=== PATIENT | male | born 1965 | race Caucasian/White ===

== ENCOUNTER 2024-01-02 22:02 | Inpatient (IN) | payer MEDICAID, SELFPAY ==
[2024-01-02 17:32] VITALS: BP 144/90; BMI 19.7
[2024-01-02 17:59] LABS: % Basophils 0.8 % (0-2); % Eosinophils 1.3 % (0-6); % Immature Granulocytes 0.2 % (0-0.5); % Lymphocytes 22.6 % (20.5-51.1); % Neutrophils 65.1 % (42.2-75.2); Absolute Basophils 0.1 10^3/uL (0-0.2); Absolute Eosinophils 0.1 10^3/uL (0-0.7); Absolute Lymphocytes 1.9 10^3/uL (1.2-3.4); Absolute Monocytes 0.9 10^3/uL (0.1-0.6); Absolute Neutrophils 5.5 10^3/uL (1.4-6.5); Hematocrit 35.9 % (39.0-52.0); Hemoglobin 12.8 g/dL (13.0-18.0); Mean Corp Hgb Conc. 35.7 g/dL (33.0-37.0); Mean Corpuscular Hgb 35.5 pg (27.0-31.0); Mean Corpuscular Volume 99.4 fL (80.0-94.0); Mean Platelet Volume 9.6 fL (7.4-10.4); Nucleated Red Blood Cells % 0 % (-); Platelet Count 231 10^3/uL (130-400); Red Blood Cell Count 3.61 10^6/uL (4.70-6.10); Red Cell Dist. Width 13.5 % (11.5-14.5); White Blood Cell Count 8.5 10^3/uL (4.8-10.8)
[2024-01-02 18:11] LABS: ALT (SGPT) 27 U/L (0-50); AST (SGOT) 59 U/L (17-59); Albumin 4.9 g/dl (3.5-5.0); Alkaline Phosphatase 104 U/L (38-126); Blood Urea Nitrogen 40 mg/dl (9-20); Calcium 9.1 mg/dl (8.4-10.2); Carbon Dioxide 26 mmol/L (22-30); Chloride 100 mmol/L (98-107); Estimated Creatinine Clearance 34 ml/min; Glucose 97 mg/dl (70-99); Lipase 243 U/L (23-300); Potassium 3.9 mmol/L (3.5-5.1); Sodium 138 mmol/L (135-145); Total Bilirubin 0.6 mg/dl (0.2-1.3); Total Protein 8.2 g/dl (6.3-8.2); eGFR 31.71
--- NOTE | 2024-01-02 20:40 | ED.GENMED ---
History of Present Illness
General
Chief Complaint: Male Genito-Urinary Symptoms
Source: patient
Exam Limitations: none
Time Seen by Provider: 01/02/24 20:27
Nursing documentation reviewed up to this point in time: agreed with
Travel History
Have you had any contact with someone who has COVID-19?: No
Do you have any symptoms of coronavirus? Fever > 100 degrees, chills, cough, shortness of breath, sore throat, loss of taste or smell, muscle aches, or headache?: No
History of Present Illness
History of Present Illness:
58-year-old male difficulty urinating with suprapubic pain only dribbling since yesterday states he had a similar episode as a teenager when he had a kidney stone takes no meds, has a family history of hypertension and diabetes,
He does tell me he had right greater than left leg swelling he had some Lasix that he was prescribed previously did take 2 doses with some improvement
Past History
Past History
ED Past Medical History: CVA
Social History
Tobacco: Non-smoker
Alcohol: Occasional
Drug: Marijuana (occasional)
Employment: Employed
Family History
Family History: Diabetes and Hypertension
Review of Systems
Review of Systems
All Other Systems: Not applicable
Constitutional: Denies fever or fatigue
ABD/GI: Reports abdominal pain
: Reports difficulty voiding and urgency
Musculoskeletal: Reports edema
Endocrine: Reports no symptoms
Hematologic/Lymphatic: Reports no symptoms
Phy Exam
Physical Exam
Physical Exam:
Physical Exam
General: 58 male looks uncomfortable
Neck: No jaundice
Heart: s1/s2 regular rate and rhythm, no murmur. equal radial pulses.
Lungs: no acute respiratory distress.
Abdomen: Palpable bladder near the umbilicus with tenderness
Neuro: alert and oriented. no focal neurological deficits
Skin: no rash
Psychiatric: well kept. interactive and cooperative
Extremities: Right lower extremity swelling
Course
Orders/Labs/Results
Orders:
Orders
01/02/24 17:47
Complete Blood Count/With Diff Urgent
Comprehensive Metabolic Panel Urgent
Lipase Urgent
01/02/24 18:01
Urinalysis Reflex To Culture Urgent
01/02/24 20:27
Bladder Scan- Treatment ONCE
01/02/24 20:36
CT Abd/pel Without Iv Or Oral Urgent
Comment:
Reason For Exam: arf obsturction kiendy stone
Mccormick Placement- Treatment ONCE
Reason for insertion: Outlet obstruction
01/02/24 20:45
0.9% Sodium Chloride 1000 ml [Nss] 1,000 ml IV BOLUS
Abnormal Lab Results
01/02/24
17:47
RBC 3.61 L 10^6/uL
(4.70-6.10)
Hgb 12.8 L g/dL
(13.0-18.0)
Hct 35.9 L %
(39.0-52.0)
MCV 99.4 H fL
(80.0-94.0)
MCH 35.5 H pg
(27.0-31.0)
Absolute Monos (auto) 0.9 H 10^3/uL
(0.1-0.6)
Monocytes % 10.0 H %
(1.7-9.3)
BUN 40 H mg/dl
(9-20)
Creatinine 2.3 H mg/dL
(0.7-1.3)
01/02/24 17:47
01/02/24 17:47
Vital Signs
Initial and Last Documented VS:
Initial Vital Signs
Temp Pulse Resp BP Pulse Ox
98.4 F 95 16 144/90 100
01/02/24 17:32 01/02/24 17:32 01/02/24 17:32 01/02/24 17:32 01/02/24 17:32
Last Documented Vital Signs
Temp Pulse Resp BP Pulse Ox
98.4 F 95 16 144/90 100
01/02/24 17:32 01/02/24 17:32 01/02/24 17:32 01/02/24 17:32 01/02/24 17:32
MDM/Problems Addressed
Differential Diagnosis Includes:
Urinary retention, intra-abdominal process, stone
*Radiology
Radiology exam reviewed: preliminary read by ED provider
*Pulse Oximetry
Patient hypoxic: no
*Critical Care Note
Total Time (30-74mins, 75-104mins- exclusive of procedures): Not Applicable
Data Reviewed
Review of Other/Old Records Reveals: Labs
Source: patient
Update Note
Update Note:
Patient with likely urinary retention has acute renal insufficiency, bladder scan and then Mccormick will check CT to rule out any hydro will require admission
+Bladder scan
Mccormick by RN 1200 cc of yellow urine placed patient feeling better
Will also check Doppler of the leg will require admission
ED Attending Note
-
Portions of this chart may have been created with voice recognition software.� Occasional wrong word or��sound alike� substitutions may have occurred due to the inherent limitations of voice recognition software.
Discharge Plan
Departure
Patient Disposition: Admit
Date of Disposition: 01/02/24
Time of Disposition: 21:09
Admit to: Med/Surg
Presentation/result/management discussed w/ accepting MD/DO: Hospitalist
Patient with high blood pressure during this ER visit?: Yes
Condition: Fair
Discharge Problem:
LITTLE (acute kidney injury), Obstruction, uropathy
Prescriptions:
No Action
nicotine 14 mg/24 hr Patch 24 Hour
14 mg transdermal DAILY Qty: 30 0RF
lidocaine 4 % Adhesive Patch,Medicated
1 patch topical DAILY Qty: 30 0RF
thiamine HCl (vitamin B1) 100 mg Tablet
100 mg PO BID Qty: 60 0RF
benzonatate 100 mg Capsule
200 mg PO TIDPRN PRN (Reason: cough) Qty: 20 0RF
folic acid 1 mg Tablet
1 mg PO DAILY Qty: 30 0RF
guaifenesin 600 mg Tablet Extended Release 12hr
1,200 mg PO Q12 Qty: 20 0RF
acetaminophen [Tylenol] 325 mg tablet
650 mg PO QID PRN (Reason: pain) Qty: 30 0RF
Referrals:
Marcus Cavazos DO [Family Provider] -
Interventions
Interventions:
*Risk Screen - Suicide Last Done: 01/02/24 17:32
*Neglect/Abuse Screening Last Done: 01/02/24 17:32
ED- Fall Risk Assessment Last Done: 01/02/24 17:32
ED-Male Genitourinary Assessment Last Done: 01/02/24 20:49
Discharge Date and Time
Print Language: BENINESE
[2024-01-02 21:08] VITALS: BP 160/99
[2024-01-02] MEDS: NSS 1000 IV ×2 (21:11→22:47)
--- NOTE | 2024-01-02 21:23 | HPS.HSE ---
Family Physician
-
Family Physician: Marcus Cavazos
Chief Complaint
-
Difficulty voiding
History of Present Illness
58-year-old male complaining of suprapubic pain with urinary dribbling since yesterday. Along with suprapubic pain. He denies any flank pain, fever, chills, chest pain, palpitations, shortness of breath, cough, abdominal pain, nausea, vomiting,
diarrhea. He reports past medical history of kidney stones many years ago but states he was able to pass it.
He has past medical history of alcohol abuse/withdrawal, HTN, renal calculi, nicotine abuse, marijuana use, CVA, influenza A August 2023, bacterial streptococcal pneumonia August 2023, cachexia, left-sided rib fractures
Medical History
Past Medical History
Past Medical History: Reports Other
Additional Past Medical History:
alcohol abuse/withdrawal
HTN
renal calculi
nicotine abuse
marijuana use
CVA
influenza A August 2023, bacterial streptococcal pneumonia August 2023
cachexia
left-sided rib fractures
Past Surgical History: Reports Other (Right descended testicular repair age 4)
Social History
Tobacco: Smoker (1/2 pack/day x 45 years)
Alcohol: Daily (2-3 [place] lights a day +1 shot of bourbon)
Drug: Marijuana (Smokes 2 hits off of 1 joint daily)
Personal: Single
Living: With Family (Uncle lives with him)
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
Family History
Family History: Other (Mother age 83 CHF, DM 2 father age 48 alcohol abuse liver disease, DM2, brother living history diverticulitis, maternal aunt history of kidney stones)
Allergies / Home Medications
Allergies reflects when Allergies were last updated in [employer].
Home Medications with original date entered in [employer]
Allergy/Medication List:
Allergies
Allergy/AdvReac Type Severity Reaction Status Date / Time
No Known Allergies Allergy Verified 01/02/24 17:31
Home Medications
benzonatate 100 mg capsule 200 mg (2 x 100 mg) PO TIDPRN PRN cough #20 caps 09/03/23
folic acid 1 mg tablet 1 mg PO DAILY #30 tabs 09/03/23
guaifenesin 600 mg tablet, extended release 12 hr 1,200 mg (2 x 600 mg) PO Q12 #20 tabs 09/03/23
lidocaine 4 % topical patch 1 patch topical DAILY #30 ea 09/03/23
nicotine 14 mg/24 hr daily transdermal patch 14 mg transdermal DAILY #30 ea 09/03/23
thiamine HCl (vitamin B1) 100 mg tablet 100 mg PO BID #60 tabs 09/03/23
acetaminophen 325 mg tablet (Tylenol) 650 mg (2 x 325 mg) PO QID PRN pain #30 tabs 09/04/23
Review of Systems
-
History Source: Patient
A 12 point ROS was completed and negative except as noted: Yes
Constitutional: Denies Fever or Chills
EENT: Denies Sore Throat or Runny Nose
Respiratory: Denies Cough or Trouble Breathing
Cardiac: Denies Chest Pain, Diaphoresis, Palpitations or Syncope
Abdomen/GI: Denies Abdominal Pain, Nausea, Vomiting, Diarrhea, Constipated, Bloody Stools or Black Stools
: Reports Incontinence, Difficulty Voiding and Urgency; Denies Dysuria, Frequency or Flank Pain
Musculoskeletal: Denies Joint Pain or Edema
Skin: Denies Itching or Rash
Neurological: Denies Dizzy or Headache
Endocrine: Reports No Symptoms
Hematologic/Lymphatic: Reports No Symptoms
Psych: Reports Calm
Physical Exam
Vital Signs
Vital Signs
Temp Pulse Resp BP Pulse Ox
98.4 F 95 16 160/99 96
01/02/24 17:32 01/02/24 17:32 01/02/24 17:32 01/02/24 21:08 01/02/24 21:15
Physical Exam
General: Comfortable and Conversant; No Pain or Fever
HEENT: NormoCephalic, Anicteric, Moist mucous membranes, PERRLA, [place] Conjunctivae, No Ptosis and Neck Nontender
Respiratory: Clear; No Wheezes, Rales or Rhonchi
Cardiac: S1/S2 and Regular Rhythm; No Murmur, Rub, Gallop or Peripheral Edema
Breast: Deferred by me
GI: Soft, Non Distended, Normal Bowel Sounds, Tender (Suprapubic tenderness) and No Hepatosplenomegaly
Rectal: Deferred by Provider
Genito-urinary: Mccormick (Draining yellow in color)
Musculoskeletal: No Clubbing, No Cyanosis and No Edema
Skin: Warm and Dry; No Rash
Neuro: AO x 3, No Motor Deficits, Nonfocal/grossly intact, Cranial Nerves Intact and No Sensory Deficits; No Slurred Speech, Facial Droop or Tremors
Psych: Calm
Laboratory Results
-
01/02/24 17:47
01/02/24 17:47
Laboratory Results
Total Bilirubin 0.6 mg/dl (0.2-1.3) 01/02/24 17:47
AST 59 U/L (17-59) 01/02/24 17:47
ALT 27 U/L (0-50) 01/02/24 17:47
Alkaline Phosphatase 104 U/L (38-126) 01/02/24 17:47
Lipase 243 U/L (23-300) 01/02/24 17:47
Impression/Plan
-
Impression/plan:
Admit to Tele
#Acute urinary retention
1200 mL cc retained via Mccormick placement
-CT abdomen pelvis without contrast
-Follow UA LATENT FINGERPRINT EXAMINER
-Consult urology
#LITTLE secondary to urinary retention vs obstruction
#Hx renal calculi
Creat 2.6 baseline 0.7 09/04/2023
-IV NSS
-Follow BMP
-If kidney function not improving will consult nephrology
#HTN�benign
No recorded meds
#Alcohol abuse/withdrawal history
Drinks 2-3 beers a day +1 shot bourbon
Last drink 2 shots 9 to 10 AM today 01/02/2024
-MSAS screen with protocol, IV thiamine, IV folate
#History of mid thoracic spine compression fracture
#Nicotine abuse-1/2 pack x 45 years
#Marijuana use-partial 1 joint daily
-Cessation advised
-Nicotine patch 14 Mg
#History of stroke per chart
#Cachexia�BMI 19.6 kg
-Dietary consult
Other PMH
Influenza a treated with Tamiflu August 2023
Bacterial streptococcal pneumonia treated with ABX August 2023
Left-sided rib fracture
DVT prophylaxis
Subcu heparin
Full code
[2024-01-02 21:32] LABS: Urine Albumin Negative (Neg - Trace); Urine Bilirubin Negative (Negative); Urine Character Clear (Clear); Urine Color Yellow; Urine Glucose Negative (Negative); Urine Ketone Negative (Negative); Urine Leukocyte Negative (Negative); Urine Nitrite Negative (Negative); Urine Occult Blood 4+ (Negative); Urine Specific Gravity 1.015 (<1.030); Urine Urobilinogen Negative (Neg - 1+)
[2024-01-02 21:39] LABS: Urine Squamous Cell 0-2 /LPF (Few)
[2024-01-02 21:40] LABS: Urine Red Blood Cell 30-40 /HPF (0-2); Urine White Cell 0-2 /HPF (0-5)
--- NOTE | 2024-01-02 21:47 | W.PN.UPDATE ---
Update Note
Progress Note Update
This note is an update to H&P written on 01/02/24:
I agree with assessment and plan with following addition:
58yo M with PMHX of alcohol abuse came with abd pain found LITTLE and acute urinary retention, drained 1200ml after placement of Peralta
-follow UA, at this time no overt signs of infection
-CT abd/pelvis, cont peralta, tamsulosin, finasteride, follow Cr, Urine Osm, Urine Na and Urine Cr, Urology consult
-cont thiamine/folate, watch for alcohol withdrawal
approximately 76 min were spent preparing admission, communicationto family and consultants and direct patient care
[2024-01-02] MEDS: FLOMAX 0.400000000000000022 MG PO (22:08)
[2024-01-02 22:36] LABS: Urine Sodium 69 mmol/L (30-90)
--- NOTE | 2024-01-02 23:16 | W.PN.UPDATE ---
Update Note
Progress Note Update
#Urine Retention
- Consult to Dr Palomo aware
-cont flomax and peralta cath
Ct abd pelvis NONCONTRAST:
Bilateral nephroliths. No evidence for ureteral calculi. No significant pelvicalyceal or ureteral dilation.
Peralta catheter is present within a collapsed bladder.
There is evidence for significant abdominal and pelvic lymphadenopathy, which is highly suspicious for neoplastic lymphadenopathy. Main differential considerations of lymphoma and metastatic neoplastic lymphadenopathy.
There is some stranding of soft tissue density in the region of the inguinal canals bilaterally as well as in the lower anterior pelvic wall, and would suggest a degree of inflammation in this region. No evidence for a collection to suggest an
abscess.
# Abd / pelvic Lymphadenopathy concern lymphoma/metastatic neoplastic lymphadenopathy
-Consult Dr ochoa for Abd / pelvic Lymphadenopathy concern lymphoma/metastatic neoplastic lymphadenopathy
[2024-01-02 23:23] VITALS: BP 150/94; BMI 18.7
[2024-01-02] MEDS: MELATONIN 5 MG PO (23:37)
--- NOTE | 2024-01-02 23:52 | PTCARENOTE ---
Patient received from the ED via wheelchair. Patient ambulated into the room. Patient AAOx3, VSS. Mccormick is putting out rory color urine. Admission questions done, patient started on MSAS protocol. Patient stated last alcoholic drink was 01/01/24 in
the AM. Patient oriented to the room. Call vyas is within reach.
[2024-01-02 23:56] LABS: Amphetamines Negative (Negative); Barbiturates Negative (Negative); Benzodiazepines Negative (Negative); Buprenorphine Negative (Negative); Cocaine Negative (Negative); Marijuana Positive (Negative); Methadone Negative (Negative); Methamphetamines Negative (Negative); Opiates Negative (Negative); Phencyclidine Negative (Negative); Tricyclic Antidepressants Negative (Negative)
[2024-01-03] VITALS (8 sets, daily range): BP systolic 128–143; BP diastolic 82–96; PULSE 103–104; O2SAT 98
[2024-01-03 06:56] LABS: INR 0.93; PT 12.4 Sec (11.4-14.6)
[2024-01-03 06:57] LABS: APTT 28.1 Sec (23.4-35.0)
[2024-01-03 07:01] LABS: % Basophils 0.9 % (0-2); % Eosinophils 3.1 % (0-6); % Immature Granulocytes 0.3 % (0-0.5); % Lymphocytes 21.3 % (20.5-51.1); % Monocytes 11.8 % (1.7-9.3); % Neutrophils 62.6 % (42.2-75.2); Absolute Basophils 0.1 10^3/uL (0-0.2); Absolute Eosinophils 0.2 10^3/uL (0-0.7); Absolute Lymphocytes 1.4 10^3/uL (1.2-3.4); Absolute Monocytes 0.8 10^3/uL (0.1-0.6); Absolute Neutrophils 4.1 10^3/uL (1.4-6.5); Hematocrit 28.9 % (39.0-52.0); Hemoglobin 10.4 g/dL (13.0-18.0); Mean Corpuscular Hgb 35.5 pg (27.0-31.0); Mean Corpuscular Volume 98.6 fL (80.0-94.0); Mean Platelet Volume 9.8 fL (7.4-10.4); Nucleated Red Blood Cells % 0 % (-); Platelet Count 184 10^3/uL (130-400); Red Blood Cell Count 2.93 10^6/uL (4.70-6.10); Red Cell Dist. Width 13.2 % (11.5-14.5); White Blood Cell Count 6.5 10^3/uL (4.8-10.8)
[2024-01-03 07:06] LABS: ALT (SGPT) 22 U/L (0-50); AST (SGOT) 48 U/L (17-59); Albumin 3.7 g/dl (3.5-5.0); Alcohol None Detected; Alkaline Phosphatase 84 U/L (38-126); Blood Urea Nitrogen 28 mg/dl (9-20); Calcium 8.6 mg/dl (8.4-10.2); Carbon Dioxide 27 mmol/L (22-30); Chloride 104 mmol/L (98-107); Estimated Creatinine Clearance 73 ml/min; GGTP 43 U/L (15-73); Glucose 101 mg/dl (70-99); Magnesium 1.5 mg/dl (1.6-2.3); Phosphorus 2.5 mg/dl (2.5-4.5); Potassium 3.6 mmol/L (3.5-5.1); Sodium 134 mmol/L (135-145); Total Protein 6.4 g/dl (6.3-8.2); eGFR > 60.00
[2024-01-03 07:28] LABS: B-Hydroxybutyrate 0.61 mmol/L (0.02-0.27)
--- NOTE | 2024-01-03 07:46 | W.PN.UPDATE ---
Update Note
Progress Note Update
LITTLE with acute urinary retention.
Abdominal/pelvic lymphadenopathy noted on NON-CONTRAST CTAP
Mccormick catheter placed w/ immediate clear UOP.
Cr 1.0 (from 2.3)
Recommendations:
- PSA pending
- Consider CTAP w/ IV contrast to assess for neoplastic processes
- Medical Oncology consult
[2024-01-03] MEDS: FLOMAX 0.400000000000000022 MG PO (08:02)
[2024-01-03] MEDS: FOLVITE 1 MG PO (08:02)
[2024-01-03] MEDS: THIAMINE INJECTION 200 MG IV ×2 (08:03→21:41)
[2024-01-03] MEDS: HEPARIN 5000 UNITS SC ×2 (08:03→21:42)
[2024-01-03] MEDS: NICODERM TRANSDERMAL 14 MG TRANSDERM (08:13)
[2024-01-03] MEDS: ATIVAN 1 MG PO (08:32)
[2024-01-03] MEDS: NSS 1000 IV (09:18)
--- NOTE | 2024-01-03 09:38 | CON.ONC ---
Addendum entered and electronically signed by Ángel Kang MD 01/03/24 14:21:
Clinical picture most compatible with metastatic prostate cancer. Agree with plans for biopsy of retroperitoneal node. Would consider initiation of Casodex or similar antitestosterone medication in anticipation of LHRH agonist.
Original Note:
Impression
Impression
Acute urinary retention
Acute kidney injury (resolved with indwelling catheter)
Suprapubic/abdominal pain
Dysuria
Pelvic/abdominal lymphadenopathy
Profoundly elevated PSA
Alcohol abuse
Cachexia
Plan
Plan
01/02 WBC 6.5, Hgb 10.4, Hct 28.9, PLT 184
Follow CBC w/ diff daily
01/02 PSA 702
Will need additional imaging: CT c/a/p
Discussed case with Dr. Kelly and Dr. Palomo
IRAD consult for inpatient biopsy following CT
Maintain peralta per Urology
Continue Tamsulosin
MSAS protocol
Supportive care
We will follow. [place] card was provided.
Patient History
History of Present Illness
Can Noland is a 58 year old male who presented to the ER last evening, 01/01, with complaints of dysuria and inability to urinate associated with suprapubic pain. He was found to be in urinary retention with acute kidney injury; Creat 2.3. Peralta
catheter was placed with immediate return of 1200cc clear urine output. CT imaging revealed significant abdominal/pelvic lymphadenopathy suspicious for neoplastic process. PSA is 702. Patient denies family history of prostate cancer to his knowledge
although his father at a young age. He has never had ALLYN. He denies gross hematuria, pelvic/bone pain, or unintentional weight loss. He has been admitted for further evaluation and treatment.
Past-Medical/Surgical History
Alcohol abuse, daily ETOH (beer, liquor)
Nicotine abuse 1/2 ppd x 45 years
Marijuana use daily
Influenza A (08/2023) w/ bacterial streptococcal pneumonia
Hypertension
Hx Nephrolithiasis
Cachexia
Rib fractures
Patient Medication
�Medication �Instructions �Recorded �Confirmed �Last Taken �Type
benzonatate 100 mg capsule 200 mg (2 x 100 mg) PO TIDPRN PRN 09/03/23 01/02/24 Unknown Rx
cough #20 caps
nicotine 14 mg/24 hr daily 14 mg transdermal DAILY #30 ea 09/03/23 01/02/24 Unknown Rx
transdermal patch
acetaminophen 325 mg tablet 650 mg (2 x 325 mg) PO QID PRN 09/04/23 01/02/24 Unknown Rx
(Tylenol) pain #30 tabs
folic acid 1 mg tablet 1 mg PO DAILY Supplement 01/03/24 01/02/24 Unknown History
guaifenesin 600 mg tablet, 1,200 mg PO Q12 Congestion 01/03/24 01/02/24 Unknown History
extended release 12 hr
lidocaine 4 % topical patch 1 patch topical DAILY Pain 01/03/24 01/02/24 Unknown History
thiamine HCl (vitamin B1) 100 mg 100 mg PO BID Supplement 01/03/24 01/02/24 Unknown History
tablet
Active Medications
Generic Name Dose Route Start Last Admin
Trade Name Freq PRN Reason Stop Dose Admin
Bisacodyl 10 mg 01/02/24 22:38
Bisacodyl 10 Mg Rectal Suppository RECTAL 01/30/24 22:37
[id number] PRN
constipation
Folic Acid 1 mg 01/03/24 08:00 01/03/24 08:02
Folic Acid 1 Mg Tablet PO 01/31/24 07:59 1 mg
DAILY FERCHO Administration
Heparin Sodium 5,000 units 01/03/24 08:00 01/03/24 08:03
Heparin 5,000 Units/Ml 1 Ml Vial SC 01/31/24 07:59 5,000 units
Q12 FERCHO Administration
Folic Acid 1 mg/ Sodium 50.2 mls @ 200.8 mls/hr 01/02/24 22:38
Chloride IV 01/30/24 22:37
DAILYPRN PRN
if NPO
Sodium Chloride 1,000 mls @ 100 mls/hr 01/02/24 22:38 01/03/24 09:18
Nss IV 1,000 mls
.Q10H FERCHO Administration
Lorazepam 1 mg 01/02/24 22:38 01/03/24 08:32
Lorazepam 1 Mg Tablet PO 01/30/24 22:37 1 mg
Q2HPRN PRN Administration
MSAS 5-7
Lorazepam 1 mg 01/02/24 22:38
Lorazepam 2 Mg/Ml Vial IV 01/30/24 22:37
Q1HPRN PRN
MSAS 8-11
Lorazepam 2 mg 01/02/24 22:38
Lorazepam 2 Mg/Ml Vial IV 01/30/24 22:37
Q1HPRN PRN
MSAS > 11
Nicotine 14 mg 01/03/24 08:00 01/03/24 08:13
Nicotine 14 Mg Patch TRANSDERM 01/31/24 07:59 14 mg
DAILY FERCHO Administration
Polyethylene Glycol 17 grams 01/02/24 22:38
Polyethylene Glycol Powder 17 Grams Packet PO 01/30/24 22:37
DAILYPRN PRN
constipation
Senna/Docusate Sodium 1 tablet 01/02/24 22:38
Docusate W/Senna (Eduarda-Colace) Tablet PO 01/30/24 22:37
BIDPRN PRN
constipation
Sodium Chloride 0 flush 01/02/24 22:00
Sodium Chloride 0.9% (Flush) Syringe IV 01/30/24 21:59
PER PROTOCOL FERCHO
Sodium Chloride 0 ml 01/02/24 22:38
Sodium Chloride 0.9% (Preservative Free) 10 Ml Vial IV 01/30/24 22:37
PRN PRN
To dilute IV Ativan
Protocol
Tamsulosin HCl 0.4 mg 01/03/24 08:00 01/03/24 08:02
Tamsulosin 0.4 Mg Capsule PO 01/31/24 07:59 0.4 mg
DAILY FERCHO Administration
Thiamine HCl 200 mg 01/03/24 08:00 01/03/24 08:03
Thiamine (100 Mg/Ml) 2 Ml Vial IV 01/05/24 20:01 200 mg
Q12 FERCHO Administration
Thiamine HCl 100 mg 01/06/24 08:00
Thiamine 100 Mg Tablet PO 02/03/24 07:59
BID FERCHO
Review of Systems
-
History Source: Patient
Constitutional: Reports No Symptoms
EENT: Reports No Symptoms
Respiratory: Reports No Symptoms
Cardiac: Reports No Symptoms
GI: Reports No Symptoms
Breast: Reports N/A
: Reports Dysuria
Musculoskeletal: Reports No Symptoms
Skin: Reports No Symptoms
Neuro: Reports No Symptoms
Endocrine: Reports No Symptoms
Hematologic/Lymphatic: Reports No Symptoms
Allergy / Immunology: Reports No Symptoms
Psych: Reports No Symptoms
Physical Exam
-
Patient is sitting up in bed eating breakfast. He denies pain. He is exhibiting tremors.
General: No Apparent Distress, Comfortable, Conversant, Appears Chronically Ill and Cachetic
HEENT: Negative Jaundice
Cardiology: S1 and S2
Pulmonary: Clear
GI: Soft
Genito-Urinary: Peralta (orange urine in bag)
Musculoskeletal: No Clubbing
Extremities: Pulses Present
Neurology: Non Focal
Skin: Warm and Dry
Psych: Calm
Labs
Lab Results
WBC 6.5 10^3/uL (4.8-10.8) 01/03/24 06:23
RBC 2.93 10^6/uL (4.70-6.10) L 01/03/24 06:23
Hgb 10.4 g/dL (13.0-18.0) L 01/03/24 06:23
Hct 28.9 % (39.0-52.0) L 01/03/24 06:23
MCV 98.6 fL (80.0-94.0) H 01/03/24 06:23
MCH 35.5 pg (27.0-31.0) H 01/03/24 06:23
MCHC 36.0 g/dL (33.0-37.0) 01/03/24 06:23
RDW 13.2 % (11.5-14.5) 01/03/24 06:23
Plt Count 184 10^3/uL (130-400) D 01/03/24 06:23
MPV 9.8 fL (7.4-10.4) 01/03/24:23
Abs Immat Gran (auto) 0.0 10^3/uL (0-0.05) 01/03/24:
Absolute Neuts (auto) 4.1 10^3/uL (1.4-6.5) 01/03/24 06:23
Absolute Lymphs (auto) 1.4 10^3/uL (1.2-3.4) 01/03/24 06:23
Absolute Monos (auto) 0.8 10^3/uL (0.1-0.6) H 01/03/24 06:23
Absolute Eos (auto) 0.2 10^3/uL (0-0.7) 01/03/24 06:23
Absolute Basos (auto) 0.1 10^3/uL (0-0.2) 01/03/24 06:23
Immature Gran % 0.3 % (0-0.5) 01/03/24 06:23
Neutrophils % 62.6 % (42.2-75.2) 01/03/24 06:23
Lymphocytes % 21.3 % (20.5-51.1) 01/03/24 06:
Monocytes % 11.8 % (1.7-9.3) H 01/03/24 06:23
Eosinophils % 3.1 % (0-6) 01/03/24 06:23
Basophils % 0.9 % (0-2) 01/03/24 06:23
Creatinine 1.0 mg/dL (0.7-1.3) 01/03/24 06:23
Vital Signs
Vital Signs
Temp Pulse Resp BP Pulse Ox
98.6 F 85 18 138/95 96
01/03/24 07:55 01/03/24 07:55 01/03/24 07:55 01/03/24 07:55 01/03/24 07:55
01/02/24 PV US: No evidence of deep venous thrombosis of the right lower extremity.
01/02/24 Abd/pelvis CT: Bilateral nephroliths. No evidence for ureteral calculi. No significant pelvicalyceal or ureteral dilation.Peralta catheter is present within a collapsed bladder.There is evidence for significant abdominal and pelvic
lymphadenopathy, which is highly suspicious for neoplastic lymphadenopathy. Main differential considerations of lymphoma and metastatic neoplastic lymphadenopathy.There is some stranding of soft tissue density in the region of the inguinal canals
bilaterally as well as in the lower anterior pelvic wall, and would suggest a degree of inflammation in this region. No evidence for a collection to suggest an abscess.Bony degenerative changes as described. No CT findings to suggest bony metastatic
disease.
--- NOTE | 2024-01-03 10:45 | CM ---
Patient seen bedside, initial assessment completed. Patient resides with his Uncle in a split level home, 4/5 steps to first level. Patient denies DME, VN, or SNF. Patient confirms [facility], [facility], patient does not
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 CM spoke with Medina from [facility] who will be meeting with patient. CM will continue to follow for discharge planning needs.
Plan; home no needs likely.
--- NOTE | 2024-01-03 11:14 | W.PN.HOSP.TC ---
Today's Communication/Plan
-
monitor urinary output
Biopsy pending
Onc input
MSAS protocol
Assessment / Plan
Assessment / Plan
#Acute urinary retention
#Suspected BPH
-1200 mL cc retained via Peralta placement
-CT abdomen pelvis without contrast noted
-Follow UA PRODUCT/DEVICE TECHNOLOGIST
-PSA ordered and found to be significantly elevated.
-Consult urology
# Abd / pelvic Lymphadenopathy concern lymphoma/metastatic neoplastic lymphadenopathy
-Plan for prostrate biopsy per IRAD or urology. If not, consider lymph node.
-no family hx of cancer per pt
-never had colonoscopy
-heme test stools pending
-Onc input
#LITTLE secondary to urinary retention vs obstruction
#Hx renal calculi
Creat 2.6 baseline 0.7 09/04/2023
-IV switch to LR.
-Follow BMP
-Cr stabilized post peralta catheter placement.
#Alcohol abuse/withdrawal history
Drinks 2-3 beers a day +1 shot bourbon
Last drink 2 shots 9 to 10 AM today 01/02/2024
-MSAS screen with protocol, IV thiamine, IV folate
-Monitor closely. In the past, required trip to ICU and needed precedex/phenobarb.
#History of mid thoracic spine compression fracture
#Nicotine abuse-1/2 pack x 45 years
#Marijuana use-partial 1 joint daily
-Cessation advised
-Nicotine patch 14 Mg
#History of stroke per chart
#Cachexia�BMI 19.6 kg
-Dietary consult
Other PMH
Influenza a treated with Tamiflu August 2023
Bacterial streptococcal pneumonia treated with ABX August 2023
Left-sided rib fracture
DVT prophylaxis
Subcu heparin
Discussed With urology and oncology
Full code
Anticipated Discharge: > 48 hours
Subjective/Interval History
-
Date of Service: January 03, 2024
States of some tremors
did not sleep much
no abd pain
Objective Data
-
Labs:
Laboratory Results
01/02/24 01/03/24 01/03/24
22:38 06:00 06:23
WBC 6.5
Hgb 10.4 L
Hct 28.9 L
Plt Count 184 D
PT Cancelled 12.4
INR Cancelled 0.93
APTT Cancelled 28.1
Sodium Cancelled 134 L
Potassium Cancelled 3.6
Chloride Cancelled 104
Carbon Dioxide Cancelled 27
BUN Cancelled 28 H
Creatinine Cancelled 1.0
Glucose Cancelled 101 H
Calcium Cancelled 8.6
Total Bilirubin Cancelled 1.0
AST Cancelled 48
ALT Cancelled 22
Alkaline Phosphatase Cancelled 84
Vital Signs:
Vital Signs
Temp Pulse Resp BP Pulse Ox
98.6 F 82 18 138/95 96
01/03/24 07:55 01/03/24 10:37 01/03/24 07:55 01/03/24 07:55 01/03/24 07:55
I&O
01/02/24 01/03/24 01/04/24
06:59 06:59 06:59
Intake Total 480 / 480
Output Total 875 / 875
Balance -395 / -395
Physical Exam
-
General: Well Developed and No Apparent Distress
HEENT: Normocephalic, Atraumatic and Moist Mucous Membranes
Respiratory: Clear to Auscultation
Cardiac: Regular Rhythm and S1/S2; Negative Murmur, Rub or Gallop
GI: Soft, Nontender, Nondistended and Normal Bowel Sounds; Negative Organomegaly
Rectal: Deferred by Provider
Genito-urinary: Peralta (yellow color urine noted )
Musculoskeletal: No Clubbing, No Cyanosis and No Edema
Skin: Negative Rash
Neuro: Awake, Alert, Oriented, AO x 3, No Motor Deficits and Nonfocal/Grossly Intact
Hematologic / Lymphatic: No Lymphadenopathy (cervical, abdomen or inguinal was able to palpate )
Psych: Calm
Data Reviewed
-
Total Time Spent with Patient (in minutes): 58
[2024-01-03] MEDS: LR 1000 IV ×2 (12:02→21:41)
--- NOTE | 2024-01-03 12:58 | PTOTSP ---
pt currently demonstrates ability to complete simple ADLs, functional transfers, ambulation. pt's HR elevated with activity, RN notified. no acute OT needs identified, will sign off.
--- NOTE | 2024-01-03 13:28 | W.PN.UPDATE ---
Update Note
Progress Note Update
Discussed CT (non-contrast) and PSA results w/ patient at length this morning - including concerns for metastatic prostate cancer.
ALLYN performed => hardened, enlarged gland suspicious for tumor.
Plan:
- Maintain Mccormick catheter given LITTLE and acute urinary retention (>1000 cc output)
- Start tamsulosin 0.4 mg qhs
- CT-guided biopsy planned by IR
D/w Hospitalist.
D/w patient.
[2024-01-03] MEDS: IMODIUM 2 MG PO (18:33)
[2024-01-04 03:47] VITALS: BP 157/95
[2024-01-04 07:00] VITALS: BP 143/99
[2024-01-04] MEDS: NICODERM TRANSDERMAL 14 MG TRANSDERM (08:17)
[2024-01-04] MEDS: HEPARIN 5000 UNITS SC ×2 (08:17→20:40)
[2024-01-04] MEDS: FOLVITE 1 MG PO (08:18)
[2024-01-04] MEDS: FLOMAX 0.400000000000000022 MG PO (08:18)
[2024-01-04] MEDS: THIAMINE INJECTION 200 MG IV ×2 (08:18→20:33)
[2024-01-04 08:30] LABS: % Basophils 0.7 % (0-2); % Eosinophils 6.5 % (0-6); % Immature Granulocytes 0.1 % (0-0.5); % Lymphocytes 37.3 % (20.5-51.1); % Monocytes 10.4 % (1.7-9.3); Absolute Basophils 0.1 10^3/uL (0-0.2); Absolute Eosinophils 0.5 10^3/uL (0-0.7); Absolute Lymphocytes 2.6 10^3/uL (1.2-3.4); Absolute Monocytes 0.7 10^3/uL (0.1-0.6); Absolute Neutrophils 3.2 10^3/uL (1.4-6.5); Hematocrit 33.1 % (39.0-52.0); Hemoglobin 11.7 g/dL (13.0-18.0); Mean Corp Hgb Conc. 35.3 g/dL (33.0-37.0); Mean Corpuscular Hgb 35.6 pg (27.0-31.0); Mean Corpuscular Volume 100.6 fL (80.0-94.0); Mean Platelet Volume 10.5 fL (7.4-10.4); Nucleated Red Blood Cells % 0 % (-); Platelet Count 173 10^3/uL (130-400); Red Blood Cell Count 3.29 10^6/uL (4.70-6.10); Red Cell Dist. Width 12.7 % (11.5-14.5); White Blood Cell Count 7.1 10^3/uL (4.8-10.8)
[2024-01-04] MEDS: LR IV (09:35)
[2024-01-04 10:31] LABS: ALT (SGPT) 23 U/L (0-50); AST (SGOT) 54 U/L (17-59); Albumin 3.6 g/dl (3.5-5.0); Alkaline Phosphatase 83 U/L (38-126); Blood Urea Nitrogen 16 mg/dl (9-20); Carbon Dioxide 30 mmol/L (22-30); Chloride 100 mmol/L (98-107); Estimated Creatinine Clearance 105 ml/min; Glucose 138 mg/dl (70-99); Potassium 3.7 mmol/L (3.5-5.1); Sodium 131 mmol/L (135-145); Total Protein 6.5 g/dl (6.3-8.2); eGFR > 60.00
[2024-01-04 11:00] VITALS: BP 159/103
--- NOTE | 2024-01-04 11:19 | W.PN.HOSP.TC ---
Today's Communication/Plan
-
bx saturday
dc IVF
MSAS protocol
Assessment / Plan
Assessment / Plan
#Acute urinary retention
#Suspected BPH
-1200 mL cc retained via Peralta placement
-CT abdomen pelvis without contrast noted
-Follow UA SHEET METAL MECHANIC
-PSA ordered and found to be significantly elevated.
-Plan for IRAD biopsy saturday
-Consult urology
# Abd / pelvic Lymphadenopathy concern lymphoma/metastatic neoplastic lymphadenopathy
-Plan for biopsy of retroperitoneal node per onc. IRAD consulted.
-no family hx of cancer per pt
-never had colonoscopy
-heme test stools pending
-Onc input
#LITTLE secondary to urinary retention vs obstruction
#Hx renal calculi
Creat 2.6 baseline 0.7 09/04/2023
-dc IVF and observe
-Follow BMP
-Cr stabilized post peralta catheter placement.
#Alcohol abuse/withdrawal history
Drinks 2-3 beers a day +1 shot bourbon
Last drink 2 shots 9 to 10 AM today 01/02/2024
-MSAS screen with protocol, IV thiamine, IV folate
-Monitor closely. In the past, required trip to ICU and needed precedex/phenobarb.
#History of mid thoracic spine compression fracture
#Nicotine abuse-1/2 pack x 45 years
#Marijuana use-partial 1 joint daily
-Cessation advised
-Nicotine patch 14 Mg
#History of stroke per chart
#Cachexia�BMI 19.6 kg
-Dietary consult
Other PMH
Influenza a treated with Tamiflu August 2023
Bacterial streptococcal pneumonia treated with ABX August 2023
Left-sided rib fracture
DVT prophylaxis
Subcu heparin
Discussed With urology and oncology
Full code
Anticipated Discharge: > 48 hours
Subjective/Interval History
-
Date of Service: January 04, 2024
watching tv
no complaints
intermittent peralta catheter pain
Objective Data
-
Labs:
Laboratory Results
01/04/24 01/04/24
07:34 09:56
WBC Pending
Hgb Pending
Hct Pending
Plt Count Pending
Sodium Cancelled 131 L
Potassium Cancelled 3.7
Chloride Cancelled 100
Carbon Dioxide Cancelled 30
BUN Cancelled 16
Creatinine Cancelled 0.7
Glucose Cancelled 138 H
Calcium Cancelled 9.0
Total Bilirubin Cancelled 1.0
AST Cancelled 54
ALT Cancelled 23
Alkaline Phosphatase Cancelled 83
Vital Signs:
Vital Signs
Temp Pulse Resp BP Pulse Ox
97.9 F 83 12 142/84 97
01/04/24 07:00 01/04/24 07:00 01/04/24 07:00 01/04/24 07:00 01/04/24 08:00
I&O
01/03/24 01/04/24 01/05/24
06:59 06:59 06:59
Intake Total 480 / 480 950 / 950
Output Total 875 / 875 2125 / 2125
Balance -395 / -395 -1175 / -1175
Physical Exam
-
General: Well Developed and No Apparent Distress
HEENT: Normocephalic, Atraumatic and Moist Mucous Membranes
Respiratory: Clear to Auscultation
Cardiac: Regular Rhythm and S1/S2; Negative Murmur, Rub or Gallop
GI: Soft, Nontender, Nondistended and Normal Bowel Sounds; Negative Organomegaly
Rectal: Deferred by Provider
Genito-urinary: Peralta (yellow color urine noted )
Musculoskeletal: No Clubbing, No Cyanosis and No Edema
Skin: Negative Rash
Neuro: Awake, Alert, Oriented, AO x 3, No Motor Deficits and Nonfocal/Grossly Intact
Hematologic / Lymphatic: No Lymphadenopathy (cervical, abdomen or inguinal was able to palpate )
Psych: Calm
--- NOTE | 2024-01-04 12:25 | W.PN.URO.CBU ---
Today's Communication / Plan
-
keep peralta
IRad to biopsy prostate
Assessment / Plan
-
presumed prostate cancer
LITTLE due to obstructive uropathy
Diagnosis
-
Date of Service: January 04, 2024
-
Patient Diagnosis:
Presumed prostate cancer
Obstructive uropathy -- alleviated by Peralta placement
Objective
-
Vital Signs
Temp Pulse Resp BP Pulse Ox
97.9 F 83 12 142/84 97
01/04/24 07:00 01/04/24 07:00 01/04/24 07:00 01/04/24 07:00 01/04/24 08:00
Intake and Output
01/03/24 01/04/24 01/05/24
06:59 06:59 06:59
Intake Total 480 / 480 950 / 950
Output Total 875 / 875 2125 / 2125
Balance -395 / -395 -1175 / -1175
Intake:
Oral fluids 480 / 480 950 / 950
Output:
Urine, Peralta 875 / 875 975 / 975
Urine, Voided 1150 / 1150
Other:
Number of unmeasured liquid
stools
Rectum 3
Laboratory Results
01/04/24 07:34
01/04/24 09:56
PSA > 700
Physical Exam
-
Peralta in place
[2024-01-04 15:32] VITALS: BP 164/106
[2024-01-04 19:48] VITALS: BP 158/104
[2024-01-05] VITALS (8 sets, daily range): BP systolic 123–160; BP diastolic 79–113; PULSE 79; O2SAT 98
[2024-01-05 07:56] LABS: % Basophils 1.2 % (0-2); % Eosinophils 8.4 % (0-6); % Immature Granulocytes 0.2 % (0-0.5); % Lymphocytes 33.5 % (20.5-51.1); % Monocytes 12.8 % (1.7-9.3); % Neutrophils 43.9 % (42.2-75.2); Absolute Basophils 0.1 10^3/uL (0-0.2); Absolute Eosinophils 0.4 10^3/uL (0-0.7); Absolute Lymphocytes 1.7 10^3/uL (1.2-3.4); Absolute Monocytes 0.7 10^3/uL (0.1-0.6); Absolute Neutrophils 2.3 10^3/uL (1.4-6.5); Hematocrit 30.3 % (39.0-52.0); Hemoglobin 10.6 g/dL (13.0-18.0); Mean Corpuscular Hgb 35.5 pg (27.0-31.0); Mean Corpuscular Volume 101.3 fL (80.0-94.0); Mean Platelet Volume 10.4 fL (7.4-10.4); Nucleated Red Blood Cells % 0 % (-); Platelet Count 168 10^3/uL (130-400); Red Blood Cell Count 2.99 10^6/uL (4.70-6.10); Red Cell Dist. Width 12.7 % (11.5-14.5); White Blood Cell Count 5.1 10^3/uL (4.8-10.8)
--- NOTE | 2024-01-05 07:59 | W.PN.URO.CBU ---
Today's Communication / Plan
-
prostate biopsy scheduled for tomorrow
anticipate patient's discharge WITH HAWKINS shortly thereafter
Assessment / Plan
-
presumed prostate cancer
LITTLE due to obstructive uropathy --> ameliorated by Hawkins
Diagnosis
-
Date of Service: January 05, 2024
-
Patient Diagnosis:
Presumed prostate cancer
Obstructive uropathy -- alleviated by Hawkins placement
Subjective
-
'I feel fine except for this thing in my wee wee.'
Objective
-
Vital Signs
Temp Pulse Resp BP Pulse Ox
98.4 F 71 18 159/98 97
01/05/24 03:28 01/05/24 03:28 01/05/24 03:28 01/05/24 03:28 01/05/24 03:28
Intake and Output
01/04/24 01/05/24 01/06/24
06:59 06:59 06:59
Intake Total 950 / 950 840 / 840
Output Total 2125 / 2125 2600 / 2600
Balance -1175 / -1175 -1760 / -1760
Intake:
Oral fluids 950 / 950 840 / 840
Output:
Urine, Hawkins 975 / 975 1050 / 1050
Urine, Voided 1150 / 1150 1550 / 1550
Other:
Number of unmeasured liquid
stools
Rectum 3
Physical Exam
-
General - well developed, well nourished, no acute distress
Genitalia - Hawkins draining rory urine
[2024-01-05] MEDS: HEPARIN 5000 UNITS SC ×2 (08:22→20:51)
[2024-01-05] MEDS: NICODERM TRANSDERMAL 14 MG TRANSDERM (08:22)
[2024-01-05] MEDS: FLOMAX 0.400000000000000022 MG PO (08:22)
[2024-01-05] MEDS: FOLVITE 1 MG PO (08:22)
[2024-01-05] MEDS: ATIVAN 1 MG PO (08:22)
[2024-01-05] MEDS: THIAMINE INJECTION 200 MG IV ×2 (08:22→20:41)
[2024-01-05 08:24] LABS: ALT (SGPT) 37 U/L (0-50); AST (SGOT) 81 U/L (17-59); Albumin 3.6 g/dl (3.5-5.0); Alkaline Phosphatase 73 U/L (38-126); Blood Urea Nitrogen 15 mg/dl (9-20); Calcium 9.2 mg/dl (8.4-10.2); Carbon Dioxide 30 mmol/L (22-30); Chloride 100 mmol/L (98-107); Estimated Creatinine Clearance 105 ml/min; Glucose 87 mg/dl (70-99); Potassium 3.9 mmol/L (3.5-5.1); Sodium 132 mmol/L (135-145); Total Bilirubin 0.8 mg/dl (0.2-1.3); Total Protein 6.6 g/dl (6.3-8.2); eGFR > 60.00
--- NOTE | 2024-01-05 11:19 | W.PN.HOSP.TC ---
Today's Communication/Plan
-
NPO PMN
Check mag/phos
cont with peralta
Assessment / Plan
Assessment / Plan
#Acute urinary retention
#Suspected BPH
-1200 mL cc retained via Peralta placement
-CT abdomen pelvis without contrast noted
-Follow UA SIGNAL OPERATOR LINGUIST
-PSA ordered and found to be significantly elevated.
-Plan for IRAD biopsy saturday
-Consult urology
# Abd / pelvic Lymphadenopathy concern lymphoma/metastatic neoplastic lymphadenopathy
-Plan for biopsy in am. IRAD consulted.
-no family hx of cancer per pt
-never had colonoscopy
-heme test stools pending
-Onc input
#LITTLE secondary to urinary retention vs obstruction
#Hx renal calculi
Creat 2.6 baseline 0.7 09/04/2023
-dc IVF and observe
-Follow BMP
-Cr stabilized post peralta catheter placement.
#Alcohol abuse/withdrawal history
Drinks 2-3 beers a day +1 shot bourbon
Last drink 2 shots 9 to 10 AM today 01/02/2024
-MSAS screen with protocol, IV thiamine, IV folate
-Monitor closely. In the past, required trip to ICU and needed precedex/phenobarb.
#History of mid thoracic spine compression fracture
#Nicotine abuse-1/2 pack x 45 years
#Marijuana use-partial 1 joint daily
-Cessation advised
-Nicotine patch 14 Mg
#History of stroke per chart
#Cachexia�BMI 19.6 kg
-Dietary consult
Other PMH
Influenza a treated with Tamiflu August 2023
Bacterial streptococcal pneumonia treated with ABX August 2023
Left-sided rib fracture
DVT prophylaxis
Subcu heparin
Full code
Anticipated Discharge: > 48 hours
Subjective/Interval History
-
Date of Service: January 05, 2024
tolerating diet
no complaints
Objective Data
-
Labs:
Laboratory Results
01/05/24
07:02
WBC 5.1
Hgb 10.6 L
Hct 30.3 L
Plt Count 168
Sodium 132 L
Potassium 3.9
Chloride 100
Carbon Dioxide 30
BUN 15
Creatinine 0.7
Glucose 87
Calcium 9.2
Total Bilirubin 0.8
AST 81 H
ALT 37
Alkaline Phosphatase 73
Vital Signs:
Vital Signs
Temp Pulse Resp BP Pulse Ox
98.7 F 72 16 144/105 98
01/05/24 07:11 01/05/24 07:11 01/05/24 07:11 01/05/24 07:11 01/05/24 07:11
I&O
01/04/24 01/05/24 01/06/24
06:59 06:59 06:59
Intake Total 950 / 950 840 / 840
Output Total 2125 / 2125 2600 / 2600
Balance -1175 / -1175 -1760 / -1760
Physical Exam
-
General: Well Developed and No Apparent Distress
HEENT: Normocephalic, Atraumatic and Moist Mucous Membranes
Respiratory: Clear to Auscultation
Cardiac: Regular Rhythm and S1/S2; Negative Murmur, Rub or Gallop
GI: Soft, Nontender, Nondistended and Normal Bowel Sounds; Negative Organomegaly
Rectal: Deferred by Provider
Genito-urinary: Peralta (yellow color urine noted )
Musculoskeletal: No Clubbing, No Cyanosis and No Edema
Skin: Negative Rash
Neuro: Awake, Alert, Oriented, AO x 3, No Motor Deficits and Nonfocal/Grossly Intact
Hematologic / Lymphatic: No Lymphadenopathy (cervical, abdomen or inguinal was able to palpate )
Psych: Calm
[2024-01-05 11:51] LABS: Magnesium 1.2 mg/dl (1.6-2.3); Phosphorus 3.4 mg/dl (2.5-4.5)
[2024-01-05] MEDS: MAGNESIUM OXIDE 500 MG PO (12:32)
[2024-01-05] MEDS: MAGNESIUM SULFATE 100 IV (12:36)
[2024-01-06] VITALS (9 sets, daily range): BP systolic 81–162; BP diastolic 95–108
--- NOTE | 2024-01-06 06:59 | W.PN.URO.CBU ---
Today's Communication / Plan
-
prostate biopsy today
Assessment / Plan
-
presumed prostate cancer
LITTLE due to obstructive uropathy --> ameliorated by Mccormick
Diagnosis
-
Date of Service: January 06, 2024
-
Patient Diagnosis:
Presumed prostate cancer
Obstructive uropathy -- alleviated by Mccormick placement
Subjective
-
'just waiting . . . I feel fine'
Objective
-
Vital Signs
Temp Pulse Resp BP Pulse Ox
97.8 F 74 18 144/98 98
01/06/24 03:16 01/06/24 03:16 01/06/24 03:16 01/06/24 03:16 01/06/24 03:16
Intake and Output
01/04/24 01/05/24 01/06/24
06:59 06:59 06:59
Intake Total 950 / 950 840 / 840 960 / 960
Output Total 2125 / 2125 2600 / 2600 750 / 750
Balance -1175 / -1175 -1760 / -1760 210 / 210
Intake:
Oral fluids 950 / 950 840 / 840 960 / 960
Output:
Urine, Mccormick 975 / 975 1050 / 1050 750 / 750
Urine, Voided 1150 / 1150 1550 / 1550
Other:
Number of approximated MODERATE 1
amounts of urine
Number of unmeasured liquid
stools
Rectum 3
Laboratory Results
01/05/24 07:02
01/05/24 07:02
Physical Exam
-
General - well developed, well nourished, no acute distress
Chest - clear bilaterally
Abdomen - soft, non-tender, positive bowel sounds, no CVAT, no incisional pain or distention
Genitalia - normal
Rectal - normal
Skin - warm & dry with no rash
Neuro - AOx3, no motor deficits
Extremities - no clubbing, no cyanosis, no edema
Incision - clean, dry
Dressing - clean, dry, intact
--- NOTE | 2024-01-06 08:51 | W.PN.HOSP.TC ---
Today's Communication/Plan
-
Lymph node biopsy
Discharge
Assessment / Plan
Assessment / Plan
Gen-AAOx3, NAD
HEENT-NC, AT, anicteric, clear oral mm
Neck-supple
CV-reg, no M, +S1/S2
Lungs-clear B/L
Abd-soft, NT, ND
Ext-no edema
Musculoskeletal-no cyanosis, clubbing
Skin-warm and dry
Neuro-grossly non-focal
Psych-calm, cooperative
Acute urinary retention
Suspected BPH
-1200 mL cc retained via Mccormick placement
-CT abdomen pelvis without contrast noted
-Follow UA PLASTIC PARTS FABRICATOR TRIMMER
-PSA ordered and found to be significantly elevated.
-Plan for IRAD biopsy saturday
-Consult urology
Abd / pelvic Lymphadenopathy concern lymphoma/metastatic neoplastic lymphadenopathy
-Plan for biopsy in am. IRAD consulted.
-no family hx of cancer per pt
-never had colonoscopy
-heme test stools pending
-Onc input
LITTLE secondary to urinary retention vs obstruction -LITTLE resolved with Mccormick insertion.
Hx renal calculi
Creat 2.6 baseline 0.7 09/04/2023
Alcohol abuse/withdrawal history
Drinks 2-3 beers a day +1 shot bourbon
Last drink 2 shots 9 to 10 AM today 01/02/2024
-MSAS screen with protocol, IV thiamine, IV folate
-Monitor closely. In the past, required trip to ICU and needed precedex/phenobarb.
History of mid thoracic spine compression fracture
Nicotine abuse-1/2 pack x 45 years
Marijuana use-partial 1 joint daily
-Cessation advised
-Nicotine patch 14 Mg
History of stroke per chart
Cachexia�BMI 19.6 kg
-Dietary consult
Other PMH
Influenza a treated with Tamiflu August 2023
Bacterial streptococcal pneumonia treated with ABX August 2023
Left-sided rib fracture
Full code
Dispo -anticipate discharge later today after lymph node biopsy. Maintain Mccormick catheter on discharge, follow-up with PCP, urology, oncology. Discussed with patient and nurse.
33 minutes spent in discharge process.
Anticipated Discharge: Today
Subjective/Interval History
-
Date of Service: January 06, 2024
Patient seen and examined. No complaints.
Objective Data
-
Vital Signs:
Vital Signs
Temp Pulse Resp BP Pulse Ox
97.8 F 74 18 144/98 98
01/06/24 03:16 01/06/24 03:16 01/06/24 03:16 01/06/24 03:16 01/06/24 03:16
I&O
01/05/24 01/06/24 01/07/24
06:59 06:59 06:59
Intake Total 840 / 840 960 / 960
Output Total 2600 / 2600 750 / 750
Balance -1760 / -1760 210 / 210
Review of Systems
-
History Source: Patient
All other systems: Reviewed and negative
[2024-01-06] MEDS: VITAMIN B1 100 MG PO (08:57)
[2024-01-06] MEDS: FLOMAX 0.400000000000000022 MG PO (08:57)
[2024-01-06] MEDS: NICODERM TRANSDERMAL 14 MG TRANSDERM (08:57)
[2024-01-06] MEDS: HEPARIN 5000 UNITS SC (08:57)
[2024-01-06] MEDS: FOLVITE 1 MG PO (08:57)
--- NOTE | 2024-01-06 08:58 | W.DS.TRANS ---
DC Summary - Design Coordinator
-
Discharge Instructions:
Discharge Diagnosis/Procedures Enlarged lymph nodes
Acute kidney injury
Acute urinary retention
Diet Regular
Activity As tolerated
Driving Restrictions As prior to admission
Bathing Restrictions None
Other Services VN
Instructions:
Stand-Alone Forms:
Changes to Home Medications: No
Discharge Medications:
DC Medications w/original date entered in [facility]
benzonatate 100 mg capsule 200 mg (2 x 100 mg) PO TIDPRN PRN cough #20 caps 09/03/23
nicotine 14 mg/24 hr daily transdermal patch 14 mg transdermal DAILY #30 ea 09/03/23
folic acid 1 mg tablet 1 mg PO DAILY Supplement 01/03/24
guaifenesin 600 mg tablet, extended release 12 hr 1,200 mg PO Q12 Congestion 01/03/24
lidocaine 4 % topical patch 1 patch topical DAILY Pain 01/03/24
thiamine HCl (vitamin B1) 100 mg tablet 100 mg PO BID Supplement 01/03/24
tamsulosin 0.4 mg capsule 0.4 mg PO DAILY #30 caps 01/06/24
Home Medication Changes
Pending Results: No
--- NOTE | 2024-01-06 12:13 | CM ---
Patient seen bedside, discussed VN for peralta care, patient declining VN at this time, patient also works part-time and is not home bound. CM spoke with Medina from [facility], patient not providing monthly income or pay stubs, Medina will continue to
work with patient. CM spoke with [facility], unable to accept patient until denial from [place] has been made. CM obtained cost of Casodex through [facility] without insurance, cost is $16, provided cost through [employer] [facility], $10.40,
discussed with patient, able to afford this. TT sent to Oncologist with update. CM left voicemail for Ali, outpatient infusion social human services assistants, in regards to setting patient up with insurance. CM will continue to follow for discharge
planning needs.
Plan; home no needs, declining VN at this time.
[2024-01-06] MEDS: CASODEX 50 MG PO (13:59)
--- NOTE | 2024-01-06 18:54 | PTCARENOTE ---
Addendum entered by Della Powers RN 01/06/24 20:04:
Junito texted Dr. Sparks who stated that she would contact the phamacy and send a script for the Casodex.
Addendum entered by Della Powers RN 01/06/24 19:49:
Patient states that his ride was here. Patient taken to the main lobby. Received tiger text back from Michell Rose, who was off service at 1600- she stated that d/c provider orders these medications. Junito texted Dr. Calderon and asked again if he could
order. Left message for patient on his cell phone for patient to call Dr. Sparks office in the AM.
Addendum entered by Della Powers RN 01/06/24 19:15:
Dr. Calderon ordered flomax, but did not order casodex. Junito texted Michell Rose.
Original Note:
Junito texted Dr. Velázquez to electonically send script for flomax, and casodex. Dr. Velázquez left for the day referred question to [facility] doctor. Junito texted Dr. Calderon.
--- NOTE | 2024-01-06 21:41 | W.PN.ONC2 ---
Today's Communication / Plan
-
Plan is noted for d/c today following prostate biopsy.
Start Casodex 50 mg daily in anticipation of GnRH agonist. I called Rx into his pharmacy.
Will schedule follow up with our office.
Impression
Impression
Acute urinary retention
Acute kidney injury (resolved with indwelling catheter)
Suprapubic/abdominal pain
Dysuria
Pelvic/abdominal lymphadenopathy
Profoundly elevated PSA
Alcohol abuse
Cachexia
Plan
Plan
01/02 WBC 6.5, Hgb 10.4, Hct 28.9, PLT 184
Follow CBC w/ diff daily
01/02 PSA 702
Will need additional imaging: CT c/a/p
Discussed case with Dr. Kelly and Dr. Palomo
IRAD consult for inpatient biopsy following CT
Maintain peralta per Urology
Continue Tamsulosin
MSAS protocol
Supportive care
Subjective/Objective
Chief Complaint
Heme/Onc follow up of prostate cancer
Subjective
Denies complaint.
Vital Signs:
Vital Signs
Temp Pulse Resp BP Pulse Ox
97.6 F 111 22 162/108 98
01/06/24 19:41 01/06/24 19:41 01/06/24 19:41 01/06/24 19:41 01/06/24 19:41
Lab Results:
Laboratory Data
WBC 5.1 10^3/uL (4.8-10.8) 01/05/24 07:02
Hgb 10.6 g/dL (13.0-18.0) L 01/05/24 07:02
Plt Count 168 10^3/uL (130-400) 01/05/24 07:02
PT 12.4 Sec (11.4-14.6) 01/03/24 06:23
INR 0.93 01/03/24 06:23
APTT 28.1 Sec (23.4-35.0) 01/03/24 06:23
eGFR > 60.00 01/05/24 07:02
== END 2024-01-06 19:54 | disposition home or self-care (01) | DRG 988 ==
LOC: 4 EAST ACU 22:02
PROVIDERS: Clinical Nurse Specialist Family Health; Emergency Medicine; Hospitalist; Radiology Vascular & Interventional Radiology; ADMITTING PHYSICIAN Internal Medicine; ATTENDING PHYSICIAN Hospitalist; EMERGENCY PHYSICIAN Emergency Medicine; FAMILY PHYSICIAN Family Medicine; OTHER PHYSICIAN Internal Medicine Hematology & Oncology
PROC: 0T9B70Z Drainage of Bladder with Drainage Device, Via Natural or Artificial Opening (ICD-10-PCS; 2024-01-02)
PROC: 07BD3ZX Excision of Aortic Lymphatic, Percutaneous Approach, Diagnostic (ICD-10-PCS; 2024-01-06)
DX: C61 Malignant neoplasm of prostate (principal); C79.9 Secondary malignant neoplasm of unspecified site; N17.9 Acute kidney failure, unspecified; N13.8 Other obstructive and reflux uropathy; R64 Cachexia; Z68.1 Body mass index [BMI] 19.9 or less, adult; R59.0 Localized enlarged lymph nodes; N40.1 Benign prostatic hyperplasia with lower urinary tract symptoms; N13.9 Obstructive and reflux uropathy, unspecified; R33.8 Other retention of urine; I10 Essential (primary) hypertension; R97.20 Elevated prostate specific antigen [PSA]; F10.10 Alcohol abuse, uncomplicated; F12.90 Cannabis use, unspecified, uncomplicated; Z87.01 Personal history of pneumonia (recurrent); Z87.891 Personal history of nicotine dependence; Z81.1 Family history of alcohol abuse and dependence; Z83.79 Family history of other diseases of the digestive system; Z84.1 Family history of disorders of kidney and ureter; Z87.442 Personal history of urinary calculi; Z83.3 Family history of diabetes mellitus; Z82.49 Family history of ischemic heart disease and other diseases of the circulatory system; Z86.73 Personal history of transient ischemic attack (TIA), and cerebral infarction without residual deficits
CPT/HCPCS: 88305; 38505; 51702; 51798; 74176; 77012; 80053; 80306; 81003; 81015; 82010; 82077; 82570; 82977; 83690; 83735; 84100; 84153; 84300; 85025; 85610; 85730; 88342; 93971; 96360; 97116; 97162; 97165; 99152; 99153; 99285

== ENCOUNTER 2024-03-01 12:54 | Emergency (ER) | payer MEDICAID, SELFPAY ==
[2024-03-01 13:03] VITALS: BP 152/99
--- NOTE | 2024-03-01 14:47 | ED.GENMED ---
History of Present Illness
General
Chief Complaint: Catheter/Tube Problem
Source: patient and records
Exam Limitations: none
Time Seen by Provider: 03/01/24 14:08
Nursing documentation reviewed up to this point in time: agreed with
History of Present Illness
History of Present Illness:
58-year-old male presents emergency room complaining of a Peralta catheter that he wants taken out. It was placed 2 months ago in the emergency department for obstructive uropathy. He had a biopsy done that was negative for prostate cancer. He has
not followed up with urology. Denies fevers.
Past History
Past History
ED Past Medical History: CVA and Other (Urinary obstruction)
Social History
Tobacco: Non-smoker
Alcohol: Occasional
Drug: Marijuana (occasional)
Employment: Employed
Family History
Family History: Diabetes and Hypertension
Review of Systems
Review of Systems
Allergies reviewed?: Yes
All Other Systems: Not applicable
Constitutional: Denies fever or chills
EENT: Reports no symptoms
Respiratory: Reports no symptoms
Cardiac: Reports no symptoms
ABD/GI: Reports no symptoms
: Reports difficulty voiding
Musculoskeletal: Reports no symptoms
Skin: Reports no symptoms
Neurological: Reports no symptoms
Endocrine: Reports no symptoms
Hematologic/Lymphatic: Reports no symptoms
Psychiatric: Reports no symptoms
Phy Exam
Physical Exam
Physical Exam:
Physical Exam
General: no apparent distress, not acutely ill
Neck: supple. no meningeal signs. normal posterior pharynx
Heart: s1/s2 regular rate and rhythm, no murmur. equal radial
pulses.
HEENT: Pupils equal round reactive to light, EOMI
Lungs: no acute respiratory distress. clear bilaterally
Abdomen: normal bowel sounds. not tender. no CVAT, Peralta catheter in place
Neuro: alert and oriented. no focal neurological deficits cranial nerves II through XII intact
Skin: no rash
Psychiatric: well kept. interactive and cooperative
Extremities: no edema. no calf tenderness. negative homans. good distal pulses
Course
Orders/Labs/Results
Orders:
Orders
03/01/24 14:55
Lidocaine 2% [Lidocaine Uro-Jet 2%] 1 syringe .ROUTE .STK-MED ONE
Vital Signs
Initial and Last Documented VS:
Initial Vital Signs
Temp Pulse Resp BP Pulse Ox
98.1 F 83 16 152/99 98
03/01/24 13:03 03/01/24 13:03 03/01/24 13:03 03/01/24 13:03 03/01/24 13:03
Last Documented Vital Signs
Temp Pulse Resp BP Pulse Ox
98.1 F 83 16 152/99 98
03/01/24 13:03 03/01/24 13:03 03/01/24 13:03 03/01/24 13:03 03/01/24 13:03
MDM/Problems Addressed
Differential Diagnosis Includes:
UTI, urinary retention
MDM/Problems Addressed:
58 yo male with chronic peralta catheter. D/w Dr. Weaver, recommends to change peralta, antibiotics and follow up . Peralta catheter changed, pt eloped before antibiotics and d/c instructions given.
Chronic conditions affecting care: HTN
Acute Exacerbation and/or Progression of Chronic Illness: HTN
*Critical Care Note
Total Time (30-74mins, 75-104mins- exclusive of procedures): Not Applicable
Data Reviewed
Review of Other/Old Records Reveals: Progress Notes (recent admission for prostate biopsy, urinary retention, leann)
Source: records
Patient Management
Social determinants of health affecting care: Living situation
Discussion with other providers: [employer] [facility] (urology, Dr. Weaver)
Escalation/DeEscalation of care consider admission/obs:
admit not indicated
ED Attending Note
-
Portions of this chart may have been created with voice recognition software.� Occasional wrong word or��sound alike� substitutions may have occurred due to the inherent limitations of voice recognition software.
Discharge Plan
Departure
Patient Disposition: Home (Routine Discharge)
Patient with high blood pressure during this ER visit?: Yes
Condition: Good
Discharge Problem:
Chronic indwelling Peralta catheter
Instructions: How to Care for Your Peralta Catheter, Male
Prescriptions:
No Action
nicotine 14 mg/24 hr Patch 24 Hour
14 mg transdermal DAILY Qty: 30 0RF
benzonatate 100 mg Capsule
200 mg PO TIDPRN PRN (Reason: cough) Qty: 20 0RF
lidocaine 4 % adhesive patch,medicated
1 patch topical DAILY
thiamine HCl (vitamin B1) 100 mg tablet
100 mg PO BID
folic acid 1 mg tablet
1 mg PO DAILY
guaifenesin 600 mg tablet extended release 12hr
1,200 mg PO Q12
tamsulosin 0.4 mg Capsule
0.4 mg PO DAILY Qty: 30 0RF
Referrals:
Marcus Cavazos DO [Family Provider] -
Ike Palomo MD [Active] - Call in 1-3 days for appt
Interventions
Interventions:
*Risk Screen - Suicide Last Done: 03/01/24 13:03
*General Assessment Last Done: 03/01/24 13:03
*Neglect/Abuse Screening Last Done: 03/01/24 13:03
ED- Fall Risk Assessment Last Done: 03/01/24 15:22
*ED COVID-19 Vaccine History Last Done: 03/01/24 13:03
*Nursing Disposition Last Done: 03/01/24 15:22
MA-Qkssfk-Qfrmrhllyb Assessment Last Done: 03/01/24 14:17
ED-Male Genitourinary Assessment Last Done: 03/01/24 15:13
Discharge Date and Time
Discharge Date/Time: 03/01/24 15:23
Print Language: ROMANIAN
== END 2024-03-01 15:23 | disposition home or self-care (01) ==
LOC: EMR 12:54
PROVIDERS: EMERGENCY PHYSICIAN Emergency Medicine; FAMILY PHYSICIAN Family Medicine
DX: Z46.6 Encounter for fitting and adjustment of urinary device (principal); I10 Essential (primary) hypertension
CPT/HCPCS: 99283; 51702

== ENCOUNTER → 2024-04-24 07:54 | Outpatient (REF) | payer OTHER, SELFPAY | LOC: RAD 07:54 | PROVIDERS: ATTENDING PHYSICIAN Internal Medicine Hematology & Oncology; FAMILY PHYSICIAN Family Medicine | DX: C61 Malignant neoplasm of prostate (principal) | CPT/HCPCS: 78306; A9503 ==

== ENCOUNTER → 2024-10-05 14:33 | Outpatient (REF) | payer OTHER, SELFPAY ==
[2024-10-05 15:44] LABS: ALT (SGPT) 57 U/L (0-50); AST (SGOT) 81 U/L (17-59); Albumin 4.5 g/dl (3.5-5.0); Alkaline Phosphatase 145 U/L (38-126); Blood Urea Nitrogen 24 mg/dl (9-20); Calcium 9.7 mg/dl (8.4-10.2); Carbon Dioxide 27 mmol/L (22-30); Chloride 94 mmol/L (98-107); Glucose 102 mg/dl (70-99); Potassium 2.8 mmol/L (3.5-5.1); Sodium 136 mmol/L (135-145); Total Bilirubin 0.6 mg/dl (0.2-1.3); Total Protein 7.7 g/dl (6.3-8.2); eGFR 35.37
== END ==
LOC: OIDL 14:33
PROVIDERS: ATTENDING PHYSICIAN Internal Medicine Hematology & Oncology
DX: C61 Malignant neoplasm of prostate (principal)
CPT/HCPCS: 80053; 84153

== ENCOUNTER → 2024-12-16 12:10 | Outpatient (REF) | payer OTHER, SELFPAY | LOC: PET 12:10 | PROVIDERS: ATTENDING PHYSICIAN Internal Medicine Hematology & Oncology | DX: C61 Malignant neoplasm of prostate (principal) | CPT/HCPCS: 78815 ==